=== PATIENT | female | born 1955 | race Two or more races ===

== ENCOUNTER 2020-05-26 00:05 | Inpatient (IN) | payer MEDICARE, OTHER ==
[~2020-05-26] VITALS: Ht 157.5 cm; Wt 50.3 kg
--- NOTE | 2020-05-26 00:34 | NUR ---
ART at bedside for evaluation. Continue plan of care.
[2020-05-26] MEDS ORDERED: ATOR10TA PO (01:01)
[2020-05-26] MEDS ORDERED: INSU100V7 SQ (01:01)
[2020-05-26] MEDS ORDERED: ACET-73 PO (01:01)
[2020-05-26] MEDS ORDERED: TEMA15CA PO (01:01)
[2020-05-26] MEDS ORDERED: LORA-259 PO (01:01)
[2020-05-26] MEDS ORDERED: LISI-782 PO (01:01)
[2020-05-26] MEDS ORDERED: TRAZ-257 PO (01:01)
[2020-05-26] MEDS ORDERED: METF-440 PO (01:01)
[2020-05-26] MEDS ORDERED: MAG30ORA PO (01:01)
[2020-05-26] MEDS ORDERED: BLOO-1672 MC (01:01)
[2020-05-26] MEDS ORDERED: SERT-440 PO (01:01)
[2020-05-26] MEDS ORDERED: ESCI10TA PO (01:01)
[2020-05-26] MEDS ORDERED: MAGN400O6 PO (01:01)
--- NOTE | 2020-05-26 01:20 | NUR ---
at bedside for MSE.
[2020-05-26] MEDS ORDERED: ACETAMINOPHEN 325 MG TABLET PO ONE (01:30)
[2020-05-26] MEDS ORDERED: ACETAMINOPHEN 325 MG TABLET ONE (01:41)
--- NOTE | 2020-05-26 02:33 | NUR ---
Pt. admitted to [facility] , under care of Dr. Plummer/ Tariq PUBLIC HEALTH ADMINISTRATOR Belongs List completed. Pt AxO, no acute distress noted.
[2020-05-26] MEDS ORDERED: ZOLPIDEM 5 MG TABLET PO PRN (03:45)
[2020-05-26] MEDS ORDERED: MAG HYDROX/AL HYDROX/SIMETH 30 ML LIQUID UDC PO PRN ×2 (03:45→11:00)
[2020-05-26] MEDS ORDERED: MAGNESIUM HYDROXIDE 30 ML LIQUID UDC PO PRN ×2 (03:45→11:00)
[2020-05-26 03:50] VITALS: BP 118/68
--- NOTE | 2020-05-26 04:32 | NUR ---
Pt arrived on unit on 05/26/20 at 0300H from ER via gurney. Pt was admitted per hold for 5150 and GD for being unable to provide food, mcfp and clothing. Upon face to face evaluation, patient was somewhat uncooperative and paranoid and she stated she was here for the doctor to "check her head." Pt was provided with copy of advisement and copy of Patient's Rights Handbook. She denies SI or HI, denies auditory or visual hallucinations. Unit rules explained and oriented to surroundings. Kept safe. All belongings accounted for. Medical and psychiatric doctors made aware of patient's arrival. No other issues or concerns at this time.
--- NOTE | 2020-05-26 06:07 | NUR ---
Patient slept a total of 1.15 hours since admission. Denies pain or SOB. Denies SI or HI at this time. Bed is locked and in lowest position, safety precautions maintained since patient's arrival on unit. No other issues or concerns at this time, will endorse to day shift.
--- NOTE | 2020-05-26 06:20 | NUR ---
GPS: Ej Potter was paged to have med.reconciliation done. Awaiting call back. Pt.in no form of distress noted. B.S at this time 217mg/dl.
[2020-05-26] MEDS ORDERED: INFLUENZA VACCINE 2020-2021 0.5 ML DISP.SYRIN IM ONE (07:15)
[2020-05-26 07:30] VITALS: BP 116/77
[2020-05-26] MEDS ORDERED: DEXTROSE 50% 50 ML DISP.SYRIN IV PRN (11:00)
[2020-05-26] MEDS ORDERED: ACETAMINOPHEN ES 500 MG TABLET PO PRN (11:00)
--- NOTE | 2020-05-26 11:08 | NUR ---
CHANTAL Initial Discharge Note: Patient was recently discharged to [facility]) [address] , [place] [address] ) ). CHANTAL will follow up with Bronwyn feliciano from facility if patient can return to facility. Patient would like to return to facility upon discharge. CHANTAL will discuss treatment and discharge plan with patient's son, Benjamin Garibay ([phone]). CHANTAL will continue to work with patient, family, and MD to ensure a safe and proper discharge plan.
--- NOTE | 2020-05-26 11:09 | NUR ---
Firearms Report: Teletypewriter Installer completed and submitted a [employer] firearms report for 5150 grave disability certifications. A copy of report has been placed in patient chart.
--- NOTE | 2020-05-26 11:15 | NUR ---
SW Family Contact: SW spoke with patient's son, Benjamin Garibay ([phone]) and discussed treatment and discharge plan. Benjamin requested to speak with Dr. Yanes at some point and this SW informed Dr. Yanes of this request.
[2020-05-26 11:32] LABS: CREATININE 0.9 mg/dL (0.6-1.3); POTASSIUM 4.2 mmol/L (3.5-5.1)
[2020-05-26] MEDS: BLOOD SUGAR DIAGNOSTIC 1 EACH STRIP VI SCH ×4 (11:41→21:00)
[2020-05-26 11:44] LABS: BASOPHILS % (AUTO) 0.8 % (0.0-2.0); EOSINOPHILS # (AUTO) 0.2 K/uL (0.0-0.7); EOSINOPHILS % (AUTO) 3.8 % (0.0-7.0); HEMATOCRIT 41.9 % (31.2-41.9); HEMOGLOBIN 14.2 g/dL (10.9-14.3); LYMPHOCYTES % (AUTO) 33.1 % (20.5-51.5); MEAN CORPUSCULAR HEMOGLOBIN 31.8 uug (24.7-32.8); MEAN CORPUSCULAR HGB CONC 34 g/dL (32.3-35.6); MEAN CORPUSCULAR VOLUME 93.5 fL (75.5-95.3); MONOCYTES # (AUTO) 0.5 K/uL (2.0-10.0); MONOCYTES % (AUTO) 7.7 % (0.0-11.0); NEUTROPHILS # (AUTO) 3.3 K/uL (1.8-8.9); NEUTROPHILS % (AUTO) 54.6 % (38.5-71.5); PLATELET COUNT (AUTO) 197 K/uL (179-408); RED BLOOD CELL COUNT(AUTO) 4.48 MIL/uL (3.63-4.92); WHITE BLOOD COUNT (AUTO) 6.1 K/uL (3.8-11.8)
[2020-05-26] MEDS: INSULIN REGULAR, HUMAN 300 UNIT/3 ML VIAL SQ PRN ×3 (11:45→20:37)
[2020-05-26 11:56] LABS: BILIRUBIN,TOTAL 0.3 mg/dL (0.2-1.0); PHOSPHOROUS 3.7 mg/dL (2.5-4.9)
[2020-05-26 12:03] LABS: THYROID STIMULATING HORMONE 1.954 mIU/mL (0.358-3.740)
[2020-05-26] MEDS ORDERED: BLOOD SUGAR DIAGNOSTIC 1 EACH STRIP VI SCH (13:00)
[2020-05-26 16:00] VITALS: BP 126/80
[2020-05-26] MEDS: METFORMIN HCL 500 MG TABLET PO SCH (16:22)
[2020-05-26 20:15] VITALS: BP 122/68
[2020-05-26] MEDS: QUETIAPINE FUMARATE 100 MG TABLET PO SCH (20:37)
[2020-05-26] MEDS: ATORVASTATIN 10 MG TABLET PO SCH (20:37)
[2020-05-26] MEDS: INSULIN GLARGINE,HUM 300 UNITS/3 ML CARTRIDGE SQ SCH (20:37)
[2020-05-27] MEDS: BLOOD SUGAR DIAGNOSTIC 1 EACH STRIP VI SCH ×4 (06:20→21:15)
[2020-05-27 07:30] VITALS: BP 149/80
[2020-05-27] MEDS: INSULIN REGULAR, HUMAN 300 UNIT/3 ML VIAL SQ PRN ×2 (08:15→12:09)
[2020-05-27] MEDS: METFORMIN HCL 500 MG TABLET PO SCH ×2 (08:15→16:49)
[2020-05-27] MEDS: LISINOPRIL 5 MG TABLET PO SCH (08:16)
[2020-05-27] MEDS: ESCITALOPRAM OXALATE 10 MG TABLET PO SCH (08:16)
[2020-05-27] MEDS ORDERED: OLANZAPINE 10 MG VIAL IM ONE (10:00)
--- NOTE | 2020-05-27 10:15 | NUR ---
Gps/hide grader- patient refusing to stay away from the door, sitting on the floor, refusing to move, not following directions , awaol risks, reviewed safety. patient was lifted to a wheel chair , taken back to her romm. reviewed reason why she's here and she's stioll on hold, insistent she needs to leave . Psychiatrist was notified by loader helperKAJAL Pablo, orders received, Zyprexa 10 mg IM administered to her lLUOQ of her buttock.
--- NOTE | 2020-05-27 13:14 | NUR ---
SW Facility Contact: SW spoke with Bronwyn feliciano from [facility]) [place] [address] ) ) who stated they cannot accept the patient back.
--- NOTE | 2020-05-27 13:15 | NUR ---
CHANTAL SNF Referral: CHANTAL faxed patient's referral packet to the following facilities for review and possible placement: [facility] ( ) attention to [facility] admissions. [facility] ( ) attention to [facility] admissions. [facility] (phone: [phone] ) attention to [facility] admissions. Addendum: 06/02/20 at 1554 by NATAN BALLESTEROS Patient did not get accepted to either facilities.
--- NOTE | 2020-05-27 14:22 | NUR ---
Gps/Gas Line Installer Supervisor- Patient refusing to received any phone calls, flat affect does not want to respond at this time, refusing to interact, wants to leave.
--- NOTE | 2020-05-27 15:40 | NUR ---
CHANTAL Individual Therapy Note: SW met with patient today and provided brief individual counseling to address patient's presenting problem of paranoid thought process. Patient continues to present with paranoid thought process and restrictive affect. Patient is selectively mute and is not responding to questions asked by this social work job titles. Earlier, patient was sitting in the hallway in front of the exit doors. This social work job titles attempted to help redirect patient back to her room however patient was not compliant. SW offered patient to call her son and patient refused. Patient shouted "No more". Patient appears internally preoccupied and is unable to engage in a meaningful conversation at this time. SW will remain available for patient for continued supportive counseling.
[2020-05-27 16:50] VITALS: BP 111/51
--- NOTE | 2020-05-27 17:29 | NUR ---
Gps/Form Grader- Isolative this pm, withdrawn , refusing to answer questions asked. Quiet, flat guarded. Prompted to take routine pm meds., reviewed safety .
[2020-05-27 20:00] VITALS: BP 118/61
[2020-05-27] MEDS: QUETIAPINE FUMARATE 100 MG TABLET PO SCH (20:12)
[2020-05-27] MEDS: ATORVASTATIN 10 MG TABLET PO SCH (20:12)
[2020-05-27] MEDS: ACETAMINOPHEN 325 MG TABLET PO PRN (20:12)
[2020-05-27] MEDS: INSULIN GLARGINE,HUM 300 UNITS/3 ML CARTRIDGE SQ SCH (21:47)
[2020-05-28] MEDS: BLOOD SUGAR DIAGNOSTIC 1 EACH STRIP VI SCH ×4 (06:43→20:51)
--- NOTE | 2020-05-28 06:44 | NUR ---
PT SLEPT 9 H. PT IN NO ACUTE DISTRESS. PRESCRIBED MEDICATION GIVEN AND PT TOLERATED IT WELL. PT GIVEN TYLENOL PRN AT 2012H. PT BLOOD SUGAR WAS 99 AND . SAFETY AND COMFORT PROVIDED. ALL NEEDS ARE MET. WILL ENSORSE TO INCOMING NURSE FOR CONTINUITY OF CARE.
[2020-05-28 07:30] VITALS: BP 110/54
[2020-05-28] MEDS: INSULIN REGULAR, HUMAN 300 UNIT/3 ML VIAL SQ PRN ×2 (08:06→12:00)
[2020-05-28] MEDS: ESCITALOPRAM OXALATE 10 MG TABLET PO SCH (08:39)
[2020-05-28] MEDS: LISINOPRIL 5 MG TABLET PO SCH (08:39)
[2020-05-28] MEDS: METFORMIN HCL 500 MG TABLET PO SCH ×2 (08:39→18:40)
[2020-05-28 15:28] VITALS: BP 116/41
[2020-05-28] MEDS: INSULIN GLARGINE,HUM 300 UNITS/3 ML CARTRIDGE SQ SCH (20:50)
[2020-05-28] MEDS: QUETIAPINE FUMARATE 100 MG TABLET PO SCH (20:51)
[2020-05-28] MEDS: ATORVASTATIN 10 MG TABLET PO SCH (20:51)
[2020-05-28 20:59] VITALS: BP 121/67
--- NOTE | 2020-05-28 22:06 | NUR ---
Received pt resting in bed. Appears to be withdrawn and quiet. Only nods to say yes or no, refused to talk. Denies SI. Accucheck 151, insulin coverage given as per sliding scale. Other due meds given as ordered. Safety measures maintained. Will continue to monitor.
[2020-05-29] MEDS: BLOOD SUGAR DIAGNOSTIC 1 EACH STRIP VI SCH ×4 (06:41→20:01)
[2020-05-29 07:30] VITALS: BP 136/77
[2020-05-29] MEDS: METFORMIN HCL 500 MG TABLET PO SCH ×2 (08:44→16:36)
[2020-05-29] MEDS: ESCITALOPRAM OXALATE 10 MG TABLET PO SCH (08:44)
[2020-05-29] MEDS: LISINOPRIL 5 MG TABLET PO SCH (08:45)
[2020-05-29 16:00] VITALS: BP 120/67
[2020-05-29 20:00] VITALS: BP 137/68
[2020-05-29] MEDS: INSULIN GLARGINE,HUM 300 UNITS/3 ML CARTRIDGE SQ SCH (20:02)
[2020-05-29] MEDS: QUETIAPINE FUMARATE 100 MG TABLET PO SCH (20:02)
[2020-05-29] MEDS: ATORVASTATIN 10 MG TABLET PO SCH (20:02)
[2020-05-29] MEDS: INSULIN REGULAR, HUMAN 300 UNIT/3 ML VIAL SQ PRN (20:04)
[2020-05-30] MEDS: BLOOD SUGAR DIAGNOSTIC 1 EACH STRIP VI SCH ×4 (06:00→20:06)
--- NOTE | 2020-05-30 06:29 | NUR ---
Patient slept 8.30 hours and was up early this am to take a shower. Patient was also medication compliant on my shift. Continuing to monitor. No behavioral issues last night.
[2020-05-30 07:30] VITALS: BP 131/69
[2020-05-30] MEDS: ESCITALOPRAM OXALATE 10 MG TABLET PO SCH (09:10)
[2020-05-30] MEDS: METFORMIN HCL 500 MG TABLET PO SCH ×2 (09:10→17:11)
[2020-05-30] MEDS: LISINOPRIL 5 MG TABLET PO SCH (09:11)
[2020-05-30] MEDS: INSULIN REGULAR, HUMAN 300 UNIT/3 ML VIAL SQ PRN ×3 (09:12→20:10)
[2020-05-30 16:00] VITALS: BP 109/73
[2020-05-30] MEDS: ATORVASTATIN 10 MG TABLET PO SCH (20:06)
[2020-05-30] MEDS: QUETIAPINE FUMARATE 100 MG TABLET PO SCH (20:07)
[2020-05-30] MEDS: INSULIN GLARGINE,HUM 300 UNITS/3 ML CARTRIDGE SQ SCH (20:08)
[2020-05-30 20:19] VITALS: BP 118/60
[2020-05-30] MEDS: LORAZEPAM 0.5 MG TABLET PO PRN (21:03)
[2020-05-31] MEDS: BLOOD SUGAR DIAGNOSTIC 1 EACH STRIP VI SCH ×4 (06:23→21:53)
[2020-05-31 07:30] VITALS: BP 111/66
[2020-05-31] MEDS: ESCITALOPRAM OXALATE 10 MG TABLET PO SCH (09:12)
[2020-05-31] MEDS: METFORMIN HCL 500 MG TABLET PO SCH ×2 (09:12→16:54)
[2020-05-31] MEDS: LISINOPRIL 5 MG TABLET PO SCH (09:12)
[2020-05-31 15:09] VITALS: BP 110/63
[2020-05-31 20:00] VITALS: BP 130/69
[2020-05-31] MEDS ORDERED: QUETIAPINE FUMARATE 100 MG TABLET PO SCH (21:00)
[2020-05-31] MEDS: ATORVASTATIN 10 MG TABLET PO SCH (21:52)
[2020-05-31] MEDS: INSULIN GLARGINE,HUM 300 UNITS/3 ML CARTRIDGE SQ SCH (21:55)
[2020-05-31] MEDS: INSULIN REGULAR, HUMAN 300 UNIT/3 ML VIAL SQ PRN (22:01)
[2020-06-01] MEDS: LORAZEPAM 0.5 MG TABLET PO PRN (02:13)
--- NOTE | 2020-06-01 02:50 | NUR ---
RECEIVED PATIENT IN BED. APPEARED ISOLATIVE, AND WITHDRAWN. AFFECT WAS FLAT AND GUARDED BUT DENIED FEELING SAD.BLOOD SUGAR CHECK WAS 220 AND COVERAGE GIVEN PRESCRIBED. ALSO GIVEN SOME SNACK. SAFETY MEASURES PUT IN PLACE. VISUAL CHECKS MADE ON HER. WILL CONTINUE TO MONITOR.
[2020-06-01] MEDS: BLOOD SUGAR DIAGNOSTIC 1 EACH STRIP VI SCH ×4 (06:43→21:09)
[2020-06-01 07:30] VITALS: BP 117/70
[2020-06-01] MEDS: ESCITALOPRAM OXALATE 10 MG TABLET PO SCH (08:55)
[2020-06-01] MEDS: METFORMIN HCL 500 MG TABLET PO SCH ×2 (08:55→16:25)
[2020-06-01] MEDS: LISINOPRIL 5 MG TABLET PO SCH (08:56)
[2020-06-01] MEDS: risperiDONE 1 MG TABLET PO SCH ×2 (11:00→20:57)
--- NOTE | 2020-06-01 11:00 | NUR ---
CHANTAL PC Hearing: Patient had 5250 probable cause hearing today and it was upheld for grave disability.
[2020-06-01 15:25] VITALS: BP 124/69
[2020-06-01 20:40] VITALS: BP 114/66
[2020-06-01] MEDS: ATORVASTATIN 10 MG TABLET PO SCH (20:57)
[2020-06-01] MEDS: INSULIN GLARGINE,HUM 300 UNITS/3 ML CARTRIDGE SQ SCH (21:09)
[2020-06-01] MEDS: INSULIN REGULAR, HUMAN 300 UNIT/3 ML VIAL SQ PRN (21:14)
[2020-06-02] MEDS: BLOOD SUGAR DIAGNOSTIC 1 EACH STRIP VI SCH ×4 (06:32→19:54)
[2020-06-02 07:30] VITALS: BP 109/49
[2020-06-02] MEDS: LISINOPRIL 5 MG TABLET PO SCH (09:00)
[2020-06-02] MEDS: ESCITALOPRAM OXALATE 10 MG TABLET PO SCH (10:42)
[2020-06-02] MEDS: METFORMIN HCL 500 MG TABLET PO SCH ×2 (10:42→17:44)
[2020-06-02] MEDS: risperiDONE 1 MG TABLET PO SCH ×2 (10:42→20:06)
--- NOTE | 2020-06-02 12:22 | NUR ---
CHANTAL Individual Therapy Note: SW met with patient today and provided brief individual counseling to address patient's presenting problem of paranoid thought process. Patient continues to present with paranoid thought process however patient was observed smiling at this [employer] social worker. Patient presents guarded and withdrawn. Patient stated "I think everyone is talking about me. I don't like it." SW redirected patient and reoriented to reality and assured that no one is talking about her. Patient looking around and appears paranoid and is exhibiting persecutory delusions. SW encouraged patient to join group activities daily. Patient stated "I just want to lay down here in bed and rest". SW will remain available for patient for continued supportive counseling.
[2020-06-02] MEDS: INSULIN REGULAR, HUMAN 300 UNIT/3 ML VIAL SQ PRN ×2 (12:30→20:13)
--- NOTE | 2020-06-02 14:08 | NUR ---
CHANTAL SNF Referral: CHANTAL faxed patient's referral packet to [facility] attention to Gillian ( ) for review and placement. Addendum: 06/02/20 at 1553 by NATAN BALLESTEROS Patient is accepted for placement.
[2020-06-02 16:00] VITALS: BP 94/48
[2020-06-02] MEDS: ATORVASTATIN 10 MG TABLET PO SCH (20:06)
[2020-06-02] MEDS: INSULIN GLARGINE,HUM 300 UNITS/3 ML CARTRIDGE SQ SCH (20:08)
[2020-06-02 20:19] VITALS: BP 106/68
[2020-06-03] MEDS: BLOOD SUGAR DIAGNOSTIC 1 EACH STRIP VI SCH ×4 (06:30→20:38)
--- NOTE | 2020-06-03 06:41 | NUR ---
GPS: Pt.slept for 9 hrs. B.S at this time is 96mg/dl. In no form of distress noted. Re-assured prn.
[2020-06-03 07:30] VITALS: BP 109/60
[2020-06-03] MEDS: ESCITALOPRAM OXALATE 10 MG TABLET PO SCH (08:50)
[2020-06-03] MEDS: risperiDONE 1 MG TABLET PO SCH ×2 (08:50→20:38)
[2020-06-03] MEDS: METFORMIN HCL 500 MG TABLET PO SCH ×2 (08:50→16:37)
[2020-06-03] MEDS: ACETAMINOPHEN 325 MG TABLET PO PRN (08:58)
--- NOTE | 2020-06-03 10:49 | NUR ---
SW Family Contact: SW spoke with patient's son, Benjamin Garibay ([phone]) and discussed updated treatment and discharge plan. SW informed that patient is accepted [facility] and Benjamin is agreeable with this placement.
[2020-06-03] MEDS: INSULIN REGULAR, HUMAN 300 UNIT/3 ML VIAL SQ PRN ×2 (11:54→16:34)
[2020-06-03 16:00] VITALS: BP 116/66
[2020-06-03 20:28] VITALS: BP 109/68
[2020-06-03] MEDS: ATORVASTATIN 10 MG TABLET PO SCH (20:38)
[2020-06-03] MEDS: INSULIN GLARGINE,HUM 300 UNITS/3 ML CARTRIDGE SQ SCH (21:02)
[2020-06-03] MEDS: diphenhydrAMINE 50 MG CAPSULE PO PRN (22:10)
[2020-06-04 07:30] VITALS: BP 106/60
[2020-06-04] MEDS: BLOOD SUGAR DIAGNOSTIC 1 EACH STRIP VI SCH ×4 (07:36→20:11)
[2020-06-04] MEDS: risperiDONE 1 MG TABLET PO SCH ×2 (08:27→20:05)
[2020-06-04] MEDS: ESCITALOPRAM OXALATE 10 MG TABLET PO SCH (08:27)
[2020-06-04] MEDS: METFORMIN HCL 500 MG TABLET PO SCH ×2 (08:27→16:51)
[2020-06-04] MEDS: INSULIN REGULAR, HUMAN 300 UNIT/3 ML VIAL SQ PRN (16:52)
[2020-06-04 17:18] VITALS: BP 110/67
[2020-06-04 20:03] VITALS: BP 110/68
[2020-06-04] MEDS: ATORVASTATIN 10 MG TABLET PO SCH (20:04)
[2020-06-04] MEDS: INSULIN GLARGINE,HUM 300 UNITS/3 ML CARTRIDGE SQ SCH (20:13)
[2020-06-05] MEDS: BLOOD SUGAR DIAGNOSTIC 1 EACH STRIP VI SCH ×4 (06:16→20:16)
--- NOTE | 2020-06-05 06:38 | NUR ---
GPS: Pt.slept 7.30 last night. Denies wanting to hurt self. B.S at this time is 104mg/dl. Safe environment provided. Will continue to monitor.
[2020-06-05 07:30] VITALS: BP 103/46
[2020-06-05] MEDS: risperiDONE 1 MG TABLET PO SCH ×2 (08:17→20:12)
[2020-06-05] MEDS: METFORMIN HCL 500 MG TABLET PO SCH ×2 (08:18→17:13)
[2020-06-05] MEDS: ESCITALOPRAM OXALATE 10 MG TABLET PO SCH (08:18)
[2020-06-05] MEDS: INSULIN REGULAR, HUMAN 300 UNIT/3 ML VIAL SQ PRN ×2 (12:39→20:44)
[2020-06-05 15:23] VITALS: BP 100/60
[2020-06-05 20:00] VITALS: BP 113/65
[2020-06-05] MEDS: ATORVASTATIN 10 MG TABLET PO SCH (20:12)
[2020-06-05] MEDS: INSULIN GLARGINE,HUM 300 UNITS/3 ML CARTRIDGE SQ SCH (20:52)
--- NOTE | 2020-06-06 06:20 | NUR ---
PAtient slept 7.45 hrs.Compliant with medication and care.No behavioral issues through out the night.
[2020-06-06] MEDS: BLOOD SUGAR DIAGNOSTIC 1 EACH STRIP VI SCH ×4 (06:33→20:26)
[2020-06-06 07:30] VITALS: BP 106/70
[2020-06-06 08:00] VITALS: BP 106/70
[2020-06-06] MEDS: METFORMIN HCL 500 MG TABLET PO SCH ×2 (08:04→17:54)
[2020-06-06] MEDS: risperiDONE 1 MG TABLET PO SCH ×2 (08:05→20:20)
[2020-06-06] MEDS: ESCITALOPRAM OXALATE 10 MG TABLET PO SCH (08:05)
[2020-06-06] MEDS: INSULIN REGULAR, HUMAN 300 UNIT/3 ML VIAL SQ PRN (12:13)
[2020-06-06 16:00] VITALS: BP 103/49
[2020-06-06 20:00] VITALS: BP 111/64
[2020-06-06] MEDS: ATORVASTATIN 10 MG TABLET PO SCH (20:20)
[2020-06-06] MEDS: INSULIN GLARGINE,HUM 300 UNITS/3 ML CARTRIDGE SQ SCH (20:35)
[2020-06-06] MEDS: diphenhydrAMINE 50 MG CAPSULE PO PRN (22:00)
[2020-06-07] MEDS: BLOOD SUGAR DIAGNOSTIC 1 EACH STRIP VI SCH ×4 (06:24→20:44)
--- NOTE | 2020-06-07 06:32 | NUR ---
GPS: Pt.slept for 8.15 last night. Safe environment provided. B.S at this time is 79mg/dl. Needs attended. Will continue to encourage to attend daily groups scheduled.
[2020-06-07 07:30] VITALS: BP 113/60
[2020-06-07] MEDS: METFORMIN HCL 500 MG TABLET PO SCH ×2 (08:52→17:42)
[2020-06-07] MEDS: ESCITALOPRAM OXALATE 10 MG TABLET PO SCH (08:52)
[2020-06-07] MEDS: risperiDONE 1 MG TABLET PO SCH ×2 (08:53→20:43)
[2020-06-07 15:06] VITALS: BP 108/57
[2020-06-07 20:25] VITALS: BP 101/52
[2020-06-07] MEDS: ATORVASTATIN 10 MG TABLET PO SCH (20:43)
[2020-06-07] MEDS: INSULIN REGULAR, HUMAN 300 UNIT/3 ML VIAL SQ PRN (20:45)
[2020-06-07] MEDS: INSULIN GLARGINE,HUM 300 UNITS/3 ML CARTRIDGE SQ SCH (20:46)
--- NOTE | 2020-06-07 21:30 | NUR ---
RECEIVED PATIENT IN HER ROOM. SHE IS NOTED A/O X 3 CALM AND PLEASANT UPON APPROACHED. SHE IS ABLE TO VERBALIZED FEELINGS. SHE DENIED SI/HI/VH/AH SHE IS ABLE TO CFS. PT NOTED GOAL ORIENTED. V/S STABLE, PT WAS GIVEN SNACKS AND PO FLUIDS. ACCU CHECKS STABLE. PT IS COMPLIANT WITH MEDICATION REGIMENT DIET AND PLAN OF CARE.
[2020-06-07] MEDS: diphenhydrAMINE 50 MG CAPSULE PO PRN (23:04)
[2020-06-08] MEDS: BLOOD SUGAR DIAGNOSTIC 1 EACH STRIP VI SCH ×2 (06:54→11:39)
[2020-06-08 07:30] VITALS: BP 102/56
--- NOTE | 2020-06-08 07:58 | NUR ---
SW Discharge Note: Patient will be discharged to [facility] [address] [place] [address] ([phone]). Patient will be provided Ambulance transportation at 1PM. Spoke with Andie, Admin Coordinator at the facility who states they are ready to accept the patient today. Patient is aware and agreeable with discharge plans. Patient is alert and oriented x3, is unable to plan for self-care at this time, however, is willing to accept care at [facility]. Patient denies any suicidal or homicidal ideation. Patient presents with euthymic mood and congruent affect. Patient will follow-up at the facility with Dr. Yanes Psychiatrist and Dr. Yi Foot Worker. Patients javier Garibay ([phone]) is aware and agreeable with discharge plan. Patient signed the homeless waiver upon discharge and a copy was placed in the chart. Homeless resources were provided and include [address] information line for shelters and homeless resources. A copy of all resources given to patient was also placed in the chart.
[2020-06-08] MEDS: risperiDONE 1 MG TABLET PO SCH (08:49)
[2020-06-08] MEDS: ESCITALOPRAM OXALATE 10 MG TABLET PO SCH (08:49)
[2020-06-08] MEDS: METFORMIN HCL 500 MG TABLET PO SCH (08:49)
[2020-06-08] MEDS ORDERED: BISACODYL 5 MG TABLET.DR PO ONE (11:00)
[2020-06-08] MEDS: INSULIN REGULAR, HUMAN 300 UNIT/3 ML VIAL SQ PRN (11:41)
--- NOTE | 2020-06-08 13:30 | NUR ---
GPS: Nursing Notes: Discharge Notes: Patient is awake and responding to her name, cooperative with nursing care, compliant with her medications, following staff directions, ambulatory, need minimal assistance with ADL's, denies SI/HI, denies AH/VH, denies pain or discomfort, denies SOB. Discharge to [facility] [place] [address] [place] [address] . Report given to facility's nurse - KAJAL Pritchett forestry supervisor, transported to facility via ambulance, took all her belongings with her, Patient's son - Benjamin Garibay informed of discharge by social and human services assistant. Patient will follow-up at the facility with Dr. Yanes Psychiatrist and Dr. Yi Director Building. Patient refused to sign the homeless waiver form upon discharge and a copy was placed in the chart. Homeless resources were provided and include [address] information line for shelters and homeless resources by social and human services assistant.
== END 2020-06-08 13:30 | DRG 885 ==
LOC: ER 00:13 → GPS 01:27
PROVIDERS: ADMIT Psychiatry & Neurology Psychiatry; ATTEND Registered Nurse
DX: F33.3 Major depressive disorder, recurrent, severe with psychotic symptoms (principal); E11.65 Type 2 diabetes mellitus with hyperglycemia; E78.5 Hyperlipidemia, unspecified; F41.9 Anxiety disorder, unspecified; Z87.440 Personal history of urinary (tract) infections; F29 Unspecified psychosis not due to a substance or known physiological condition; Z20.822 Contact with and (suspected) exposure to COVID-19; Z79.4 Long term (current) use of insulin
CPT/HCPCS: 36415; 83735; 84100; 84443; 85025; A4663; J1815; J2358; Q0163